=== PATIENT | female | born 1975 | race Two or more races ===

== ENCOUNTER 2019-09-03 06:45 | Observation (INO) | payer MEDICAID | END 2019-09-03 07:30 | disposition left against medical advice (07) | DRG 566 | LOC: LDRP 06:45 | PROVIDERS: ADMIT Obstetrics & Gynecology; ATTEND Obstetrics & Gynecology | DX: O42.913 Preterm premature rupture of membranes, unspecified as to length of time between rupture and onset of labor, third trimester (principal); O09.523 Supervision of elderly multigravida, third trimester; Z3A.37 37 weeks gestation of pregnancy | CPT/HCPCS: 59025; 81002; G0378 ==